=== PATIENT | female | born 1985 | race African-American/Black ===

== ENCOUNTER 2018-10-07 21:16 | Emergency (ER) | payer MEDICAID ==
[~2018-10-07] VITALS: Ht 170.2 cm; Wt 115.7 kg
[2018-10-07 21:59] VITALS: BP 134/82
[2018-10-07] MEDS ORDERED: DexAMETHasone SOD PHOS 10MG/1ML VIAL INJ IM ONE (22:45)
[2018-10-07] MEDS ORDERED: cefTRIAXone SOD 1,000 MG VL IM ONE (22:45)
== END 2018-10-07 23:55 | disposition home or self-care (01) ==
LOC: ER 21:24
DX: S61.412A Laceration without foreign body of left hand, initial encounter (principal); J06.9 Acute upper respiratory infection, unspecified; R51 Headache; W45.8XXA Other foreign body or object entering through skin, initial encounter; Y93.89 Activity, other specified; Y99.8 Other external cause status; Y92.89 Other specified places as the place of occurrence of the external cause
CPT/HCPCS: 12001; 96372; 99283; J0696; J1100